=== PATIENT | male | born 1960 | race Caucasian/White ===

== ENCOUNTER 2021-06-22 17:50 | Emergency (ER) | payer SELFPAY ==
[~2021-06-22] VITALS: Ht 165.1 cm; Wt 68.0 kg
[2021-06-22 17:58] VITALS: BP 144/81
--- NOTE | 2021-06-22 18:01 | NUR ---
PT AMBULATED TO LOBBY, STEADY GAIT
--- NOTE | 2021-06-22 18:01 | NUR ---
PT TO AWAIT IN LOBBY
--- NOTE | 2021-06-22 21:17 | NUR ---
2116 - SUSAN STATED NOT IN LOBBY AT THIS TIME
== END 2021-06-22 21:15 | disposition left against medical advice (07) ==
LOC: MED 17:50
DX: F10.129 Alcohol abuse with intoxication, unspecified (principal); Z53.21 Procedure and treatment not carried out due to patient leaving prior to being seen by health care provider